=== PATIENT | female | born 2000 | race Caucasian/White ===

== ENCOUNTER 2024-05-19 22:38 | Emergency (ER) | payer MEDICAID ==
[~2024-05-19] VITALS: Ht 180.3 cm; Wt 83.5 kg
[2024-05-19 22:39] VITALS: BP 101/62; PULSE 73; TEMP 98.6; O2SAT 100
[2024-05-19 23:10] LABS: URINE HCG NEGATIVE (NEG)
[2024-05-19 23:11] LABS: EOSINOPHILS # (AUTO) 0.4 X10'3 (0-0.9); HEMOGLOBIN 13.8 g/dl (12.0-16.0)
[2024-05-19 23:11] LABS: BILIRUBIN,URINE NEGATIVE (Neg); CLARITY,URINE CLEAR (Clear); COLOR,URINE YELLOW (Yellow); GLUCOSE, URINE NEGATIVE (Neg); KETONES,URINE TRACE mg/dl (Neg); LEUKOCYTE ESTERASE ,URINE NEGATIVE (Neg); NITRITES, URINE NEGATIVE (Neg); OCCULT BLOOD,URINE NEGATIVE (Neg); PROTEIN,URINE NEGATIVE (Neg)
[2024-05-19 23:12] LABS: BASOPHILS % (AUTO) 0.4 % (0-1); EOSINOPHILS % (AUTO) 4.6 % (0-6); HEMATOCRIT 40.9 % (35.0-45.0); LYMPHOCYTES # (AUTO) 3.3 X10'3 (1.1-4.8); LYMPHOCYTES % (AUTO) 37.7 % (21-51); MEAN CORPUSCULAR HEMOGLOBIN 30.4 PG (27.0-31.0); MEAN CORPUSCULAR HGB CONC 33.7 g/dL (33.0-36.5); MEAN CORPUSCULAR VOLUME 90.1 FL (78-98); MONOCYTES # (AUTO) 0.8 X10'3 (0-0.9); MONOCYTES % (AUTO) 9.1 % (2-12); NEUTROPHILS # (AUTO) 4.2 X10'3 (1.8-7.7); NEUTROPHILS % (AUTO) 48.2 % (42-75); PLATELET COUNT 270 X10'3 (140-440); RED BLOOD COUNT 4.54 X10'6 (4.20-5.60); WHITE BLOOD COUNT 8.7 X10'3 (4.5-11.0)
[2024-05-19 23:14] LABS: UA COLLECTION TYPE CLN CATCH MIDSTREAM
[2024-05-19 23:21] LABS: ALANINE AMINOTRANSFERASE 25 U/L (12-78); ALBUMIN 3.8 G/DL (3.4-5.0); ALKALINE PHOSPHATASE 86 IU/L (46-116); ANION GAP 9 (8-16); ASPARTATE AMINO TRANSFERASE 21 U/L (10-37); BILIRUBIN,TOTAL 0.3 MG/DL (0.1-1.0); BLOOD UREA NITROGEN 12 MG/DL (7-18); BUN/CREATININE RATIO 11.9 (10.0-20.0); CALCIUM 9.5 MG/DL (8.5-10.1); CHLORIDE 105 MMOL/L (99-107); CREATININE 1.01 MG/DL (0.40-0.90); GLUCOSE 90 MG/DL (70-104); LIPASE 43 U/L (16-77); POTASSIUM 3.6 MMOL/L (3.5-5.1); SODIUM 142 MMOL/L (135-145); TOTAL CARBON DIOXIDE 28.2 MMOL/L (24-32); TOTAL PROTEIN 7.8 G/DL (6.4-8.2); eCRCL 95 ML/MIN; eGFR 67 ML/MIN
[2024-05-19] MEDS ORDERED: ondansetron/PF 4mg/2ml inj IV ONE (23:25)
[2024-05-19] MEDS: normal saline 1000ml 1,000 ML IV ONE (23:31)
[2024-05-19] MEDS: dicyclomine 10 MG capsule PO ONE (23:31)
[2024-05-19] MEDS: ondansetron 4mg rapidly disintigrating tab PO ONE (23:31)
[2024-05-19 23:36] VITALS: RESP 15
[2024-05-19] MEDS ORDERED: DICY20TA17 PO (23:56)
[2024-05-19] MEDS ORDERED: ONDA-243 PO (23:56)
== END 2024-05-20 01:31 | disposition home or self-care (01) ==
LOC: ER 22:39
DX: R11.10 Vomiting, unspecified (principal); R10.9 Unspecified abdominal pain; R19.7 Diarrhea, unspecified; Z88.5 Allergy status to narcotic agent; Z88.6 Allergy status to analgesic agent
CPT/HCPCS: 36415; 80053; 81003; 81025; 83690; 85025; 96360; 99283; J7030

== ENCOUNTER 2024-06-27 20:27 | Emergency (ER) | payer MEDICAID ==
[~2024-06-27] VITALS: Ht 180.3 cm; Wt 79.5 kg
[~2024-06-27 20:27] MED LIST: DICY20TA17 PO; ONDA-243 PO
[2024-06-27 20:36] VITALS: BP 109/51; PULSE 104; RESP 16; TEMP 98.5; O2SAT 93
== END 2024-06-28 01:47 | disposition left against medical advice (07) ==
LOC: ER 20:28
DX: U07.1 COVID-19 (principal); J11.1 Influenza due to unidentified influenza virus with other respiratory manifestations; Z88.8 Allergy status to other drugs, medicaments and biological substances; Z53.21 Procedure and treatment not carried out due to patient leaving prior to being seen by health care provider; Z20.822 Contact with and (suspected) exposure to COVID-19
CPT/HCPCS: 36415; 87502; 87503; 87811

== ENCOUNTER 2024-06-28 02:06 | Emergency (ER) | payer MEDICAID ==
[~2024-06-28] VITALS: Ht 180.3 cm; Wt 77.3 kg
[2024-06-28 02:10] VITALS: TEMP 98.4
[2024-06-28 03:49] VITALS: BP 117/80; PULSE 78; RESP 15; O2SAT 99
== END 2024-06-28 03:51 | disposition home or self-care (01) ==
LOC: ER 02:07
DX: U07.1 COVID-19 (principal); Z88.8 Allergy status to other drugs, medicaments and biological substances; Z79.899 Other long term (current) drug therapy
CPT/HCPCS: 99281; 99282